=== PATIENT | male | born 1950 | race Caucasian/White ===

== ENCOUNTER → 2021-07-11 15:14 | Outpatient (CLI) | payer OTHER, SELFPAY ==
--- NOTE | 2021-07-11 15:16 | DI.RAD.S_ITS ---
PROCEDURE: XR SHOULDER RT MIN 2V INDICATIONS: bilateral shoulder pain TECHNIQUE: 3 views of the shoulder were acquired. COMPARISON: None. FINDINGS: Bones: No fractures or dislocations. No suspicious bony lesions. Visualized ribs appear intact. Soft tissues: No suspicious soft tissue calcifications. IMPRESSION: Unremarkable right shoulder radiographs Approved by: Hardik Hart M.D. on 07/11/2021 at 16:58
--- NOTE | 2021-07-11 15:16 | DI.RAD.S_ITS ---
PROCEDURE: XR SHOULDER LT MIN 2V INDICATIONS: bilateral shoulder pain TECHNIQUE: 3 views of the shoulder were acquired. COMPARISON: None. FINDINGS: Bones: No fractures or dislocations. No suspicious bony lesions. Visualized ribs appear intact. Moderate to severe acromioclavicular degenerative narrowing. Humeral head is high-riding. Glenohumeral narrowing is present. Soft tissues: No suspicious soft tissue calcifications. IMPRESSION: Acromioclavicular and glenohumeral arthritic change. Dictated by: Hanny Gleason M.D. on 07/11/2021 at 19:29 Approved by: Hanny Gleason M.D. on 07/11/2021 at 19:30
== END ==
PROVIDERS: PCP Family Medicine; Referring Provider Family Medicine; Visit Provider Family Medicine
DX: M25.511 Pain in right shoulder (principal); M25.512 Pain in left shoulder
CPT/HCPCS: 73030

== ENCOUNTER → 2021-07-12 08:56 | Outpatient (CLI) | payer OTHER, SELFPAY ==
[2021-07-12 10:13] LABS: Add Manual Diff / Slide Review NO; Basophils Absolute Auto 0 /uL (0-100); Basophils Percent Auto 0.7 % (0-2); Eosinophils Absolute Auto 200 /uL (0-450); Eosinophils Percent Auto 4.4 % (2-4); Hematocrit 45.6 % (41-53); Hemoglobin 15.6 g/dL (13.5-17.5); Lymphocytes Absolute Auto 1100 /uL (1100-4500); Lymphocytes Percent Auto 23.9 % (25-40); Mean Corpuscular HGB Conc 34.1 % (30-36); Mean Corpuscular Hemoglobin 32.5 PG (26-34); Mean Corpuscular Volume 95.2 fL (80-100); Monocytes Absolute Auto 300 /uL (0-900); Monocytes Percent Auto 7.4 % (3-14); Neutrophils Absolute Auto 3000 /uL (1500-7000); Neutrophils Percent Auto 63.6 % (50-75); Platelet Count 139 X10^3/uL (150-400); Red Blood Cell Count 4.78 X10^6/uL (4.5-5.9); Red Cell Distribution Width 12.5 % (11.6-14.8); White Blood Cell Count 4.6 X10^3/uL (4.5-11.0)
[2021-07-12 10:34] LABS: Alanine Aminotransferase 25 IU/L (<50); Albumin 4.2 g/dL (3.5-5.0); Albumin Globulin Ratio 1.6 (1.0-2.8); Alkaline Phosphatase 64 U/L (38-126); Aspartate Aminotransferase 36 IU/L (17-59); BUN Creatinine Ratio 20.7 (6-22); Bilirubin Total 1.1 mg/dL (0.2-1.3); Blood Urea Nitrogen 25 mg/dL (9-20); Calcium 9.2 mg/dL (8.4-10.2); Carbon Dioxide 29 mmol/L (22-32); Chloride 102 mmol/L (98-107); Cholesterol 165 mg/dL (140-199); Estimated Glomerular Filt Rate 58.9 mL/min (>60); Globulin 2.7 g/dL (1.7-4.1); Glucose 91 mg/dL (80-110); HDL Cholesterol 64 mg/dL (40-60); HEMOLYSIS < 15 (0-50); LDL Cholesterol Calculated 86 mg/dL (<100); Sodium 138 mmol/L (137-145); Total Protein 6.9 g/dL (6.3-8.2); Triglycerides 74 mg/dL (35-150)
[2021-07-12 16:05] LABS: Creatinine Urine Random 110.8 mg/dL
[2021-07-12 16:39] LABS: Microalbumin Urine Random < 0.6 mg/dL (0-1.6)
== END ==
PROVIDERS: PCP Family Medicine; Referring Provider Family Medicine; Visit Provider Family Medicine
DX: R03.0 Elevated blood-pressure reading, without diagnosis of hypertension (principal); R74.8 Abnormal levels of other serum enzymes
CPT/HCPCS: 36415; 80053; 80061; 82043; 82570; 85025

== ENCOUNTER 2021-10-21 14:00 | Observation (INO) | payer OTHER, SELFPAY ==
[2021-10-21] VITALS (15 sets, daily range): BP systolic 139–214; BP diastolic 76–93; PULSE 74–88; RESP 15–21; TEMP 36.6–36.8; O2SAT 92–100; BMI 22.1
--- NOTE | 2021-10-21 14:06 | DI.RAD.S_ITS ---
PROCEDURE: XR CHEST 1V INDICATIONS: Possible stroke TECHNIQUE: One view of the chest was acquired. COMPARISON: None. FINDINGS: Surgical changes and devices: None. Lungs and pleura: Lungs are clear. No pleural effusions or pneumothorax. Mediastinum: Mediastinal contours appear normal. Heart size is normal. Bones and chest wall: No suspicious bony lesions. Overlying soft tissues appear unremarkable. IMPRESSION: No acute process. Dictated by: Radha Mike M.D. on 10/21/2021 at 14:47 Approved by: Radha Mike M.D. on 10/21/2021 at 14:47
--- NOTE | 2021-10-21 14:07 | DI.CT.S_ITS ---
PROCEDURE: CT HEAD/BRAIN WO CON INDICATIONS: slurred speech since 1830 10/20. TECHNIQUE: Noncontrast 4.5 mm thick angled axial sections acquired from the foramen magnum to the vertex, with coronal and sagittal reformats. For radiation dose reduction, the following was used: automated exposure control, adjustment of mA and/or kV according to patient size. COMPARISON: None. FINDINGS: Image quality: Excellent. CSF spaces: Basal cisterns are patent. No extra-axial fluid collections. The ventricles are symmetric in size and shape. Brain: No intracranial bleeds or masses. There is cerebral volume loss for age, with resultant ventricular and sulcal prominence. There are periventricular and deep white matter chronic small vessel ischemic changes. Low-density foci are seen involving the deep white matter of the left frontal lobe. There is intracranial internal carotid artery atherosclerosis. Skull and face: Calvarium and visualized facial bones appear intact, without suspicious lesions. Sinuses: Visualized sinuses and mastoids are clear. IMPRESSION: There low-density foci seen involving the deep white matter of the left frontal lobe, which most likely represent subacute to remote infarctions. No acute intracranial hemorrhage is seen. If there is strong clinical suspicion for an acute stroke, please consider a brain MRI for further evaluation, as it is more sensitive (assuming that there is no contraindication to MRI). Note is made of age-appropriate brain parenchymal volume loss and chronic small vessel ischemic changes. Dictated by: Rubens Roche M.D. on 10/21/2021 at 13:53 Approved by: Rubnes Roche M.D. on 10/21/2021 at 13:54
--- NOTE | 2021-10-21 14:13 | ED.NEUROSD ---
HPI - Neuro Symptoms/Deficit General Chief Complaint: Neuro Symptoms/Deficit Stated Complaint: Slurred Speech, Chills, Rapid Heart Rate Time Seen by Provider: 10/21/21 14:05 History of Present Illness HPI Narrative: The patient is here for concerns of slurred speech. He developed slurred speech last night, apparently worse this morning. He has no confusion, no visual changes, no changes in facial expression. His complains that he always had slurred speech. Apparently worse today. He is ambulatory upon arrival. He has no weakness or numbness in extremities. He denies recent illness. He has no headache, sore throat, dyspnea or fever. He has no GI symptoms. He denies chronic medical problems. He is on no medications. Specifically has no history of stroke, TIA or cardiac disease. He denies surgical history. His described issue with his liver couple years ago, that caused significant issues with his heart. No diagnosis was made, symptoms resolved without obvious sequelae. On Anticoagulants: No Related Data Home Medications Medication Instructions Recorded Confirmed No Known Home Medications 07/18/21 10/21/21 Allergies Allergy/AdvReac Type Severity Reaction Status Date / Time codeine Allergy Verified 10/21/21 14:15 Review of Systems Constitutional Constitutional: Denies chills, Denies fever(s) and Denies headache(s) Comments: No recent illness. Eyes Eyes: Denies change in vision and Denies loss of vision ENT Ears, Nose, Mouth, and Throat: Denies vertigo, Denies dizziness, Denies headache(s), Denies sinus pressure and Denies sore throat Cardiovascular Cardiovascular: Denies chest pain, Denies syncope, Denies rapid heart rate, Denies pedal edema, Denies irregular heart rhythm and Denies dyspnea Respiratory Respiratory: Denies cough and Denies dyspnea Gastrointestinal Gastrointestinal: Denies abdominal pain Genitourinary Genitourinary: Denies dysuria and Denies urinary frequency Musculoskeletal Musculoskeletal: Denies arthralgias and Denies myalgias Integumentary/Breasts Skin/Breast: Denies lesions and Denies rash Neurologic Neurologic: Denies confusion, Denies vertigo, Denies dizziness, Denies syncope, Denies headache(s), Denies localized weakness, Denies loss of vision and Denies memory loss Psychiatric Psychiatric: Denies confusion and Denies memory loss Hematologic/Lymphatic On Anticoagulants: No Patient History Medical History Ruptured tympanic membrane (~1986) Surgical History Anesthesia History of nasal surgery (~1964) Family History Father Sepsis Mother History of heart disease Grandmother Melanoma Grandfather Intestinal disease Grandmother History of heart disease History of heart attack Grandfather History of heart disease Social History household members: spouse Smoking Status: Never smoker alcohol intake: never Smoking Status: Never smoker Exam Initial Vital Signs Initial Vital Signs: Vital Signs Temperature 97.9 F 10/21/21 14:00 Pulse Rate 87 10/21/21 14:00 Respiratory Rate 15 10/21/21 14:00 Blood Pressure 214/93 H 10/21/21 14:00 Pulse Oximetry 99 10/21/21 14:00 Const General: cooperative, healthy appearing, comfortable, well developed and well groomed [facility] Head: normocephalic and atraumatic Face and sinus: normal facial exam Mouth: oral mucosae normal Eyes Conjunctivae: conjunctivae normal Sclera: sclerae normal Pupils: PERRL EOM: EOM intact bilaterally Direct ophthalmoscopy: fundi normal bilaterally Neck Neck: No JVD and other (No bruits) Chest Chest: normal inspection of the chest Resp Auscultation: clear to auscultation bilaterally Cardio Rate: regular rate Rhythm: regular rhythm Heart Sounds: S1 normal, S2 normal and no murmurs Bruits: abdominal aortic bruit GI Palpation: soft, No mass and No tender Auscultation: normal bowel sounds Back/Spine/Pelvis Back: normal to inspection and back tenderness Skin General: no rashes or lesions noted Neuro General: patient alert, patient awake and no focal motor deficits Cranial Nerves: CN's II-XI intact bilaterally Motor: muscle tone normal throughout Extrem General: normal to inspection, full ROM, no pedal edema and no calf tenderness Psych Mental Status: mental status grossly normal Scores NIH Stroke Scale Level of Conciousness: Alert, keenly responsive Ask month/age: Answers both questions correctly. Open/close eyes, close hand: Performs both tasks correctly Best gaze horizontal: Normal Visual yoder: No visual loss Facial palsy: Normal symetrical movement Left arm drift: No drift for full 10 sec Right arm drift: No drift for full 10 sec Left leg drift: No drift for full 5 sec Right leg drift: No drift for full 5 sec Limb ataxia: Absent Sensory on face/arms/legs: Normal, no sensory loss Best language: No aphasia, normal Dysarthria: Normal Extinction or inattention: No abnormality Total NIH Stroke scale score: 0 Course Course Course Narrative: The patient has NIHSS of 0. However CT showed a subacute stroke, confirmed by MRI. He is neurologically intact. He has a normal sinus rhythm without obvious ectopy. His blood pressure is in the 150s at the time of admission. He has been given aspirin. The case was discussed with Dr. Bergman, hospitalist. He is admitted for ongoing care and management for stroke. Orders Ordered: ED Orders 10/21/21 14:06 XR chest 1V Stat 10/21/21 14:07 CT head/brain wo con Stat 10/21/21 14:08 COVID19 -Nasal swab/Pre-Proc Stat 10/21/21 14:13 Complete Blood Count AUTO DIFF Stat Comprehensive Metabolic Panel Stat Partial Thromboplastin Time Stat Prothrombin Time INR Stat Troponin & CK Cardiac Panel Stat 10/21/21 14:14 EKG-12 Lead Stat 10/21/21 15:16 MR stroke Stat 10/21/21 18:10 Urine Drug Screen, Rapid Stat Discontinued Medications Aspirin (Aspirin 81 Mg Chew Tab) 324 mg PO NOW ONE Stop: 10/21/21 17:38 Last Admin: 10/21/21 18:51 Dose: 324 mg Documented by: FROYLAN Vital Signs Vital signs: Vital Signs - 8 hr 10/21/21 14:00 10/21/21 14:05 10/21/21 14:07 Temperature 97.9 F Pulse Rate 87 88 Respiratory Rate 15 Blood Pressure 214/93 H 214/93 H Pulse Oximetry 99 92 99 10/21/21 14:30 10/21/21 14:49 10/21/21 15:00 Temperature Pulse Rate 78 80 79 Respiratory Rate 15 Blood Pressure 150/76 H 154/81 H Pulse Oximetry 100 100 99 10/21/21 16:07 10/21/21 16:08 10/21/21 16:30 Temperature Pulse Rate 88 88 84 Respiratory Rate 17 Blood Pressure 156/81 H Pulse Oximetry 98 99 98 10/21/21 17:00 Temperature Pulse Rate 85 Respiratory Rate Blood Pressure Pulse Oximetry MDM - Neuro Symptoms/Deficit Lab Data Result diagrams: 10/21/21 14:13 10/21/21 14:13 Labs: Lab Results 10/21/21 10/21/21 10/21/21 Range/Units 14:08 14:13 14:13 WBC 5.4 (4.5-11.0) X10^3/uL RBC 4.81 (4.5-5.9) X10^6/uL Hgb 15.9 (13.5-17.5) g/dL Hct 46.0 (41-53) % MCV 95.6 (80-100) fL MCH 33.1 (26-34) PG MCHC 34.6 (30-36) % RDW 13.5 (11.6-14.8) % Plt Count 139 L (150-400) X10^3/uL Neut % (Auto) 76.0 H (50-75) % Lymph % (Auto) 14.0 L (25-40) % [place] % (Auto) 8.8 (3-14) % Eos % (Auto) 0.6 L (2-4) % Baso % (Auto) 0.6 (0-2) % Neut # (Auto) 4100 (4097-2104) /uL Lymph # (Auto) 800 L (8486-8874) /uL [place] # (Auto) 500 (0-900) /uL Eos # (Auto) 0 (0-450) /uL Baso # (Auto) 0 (0-100) /uL PT 11.6 (10.1-12.7) SECONDS INR 1.0 (0.9-1.3) APTT 30 (26.4-36.2) SECONDS Sodium (137-145) mmol/L Potassium (3.4-5.1) mmol/L Chloride (98-107) mmol/L Carbon Dioxide (22-32) mmol/L BUN (9-20) mg/dL Creatinine (0.66-1.25) mg/dL Estimated GFR (>60) mL/min BUN/Creatinine Ratio (6-22) Glucose (80-110) mg/dL Calcium (8.4-10.2) mg/dL Total Bilirubin (0.2-1.3) mg/dL AST (17-59) IU/L ALT (<50) IU/L Alkaline Phosphatase (38-126) U/L Total Creatine Kinase (55-170) U/L CK-MB (CK-2) CK-MB (CK-2) Rel Index Troponin I (0.01-0.034) ng/mL Total Protein (6.3-8.2) g/dL Albumin (3.5-5.0) g/dL Globulin (1.7-4.1) g/dL Albumin/Globulin Ratio (1.0-2.8) SARS-CoV-2 (PCR) Negative (Negative) 10/21/21 Range/Units 14:13 WBC (4.5-11.0) X10^3/uL RBC (4.5-5.9) X10^6/uL Hgb (13.5-17.5) g/dL Hct (41-53) % MCV (80-100) fL MCH (26-34) PG MCHC (30-36) % RDW (11.6-14.8) % Plt Count (150-400) X10^3/uL Neut % (Auto) (50-75) % Lymph % (Auto) (25-40) % [place] % (Auto) (3-14) % Eos % (Auto) (2-4) % Baso % (Auto) (0-2) % Neut # (Auto) (1910-7784) /uL Lymph # (Auto) (5406-4353) /uL [place] # (Auto) (0-900) /uL Eos # (Auto) (0-450) /uL Baso # (Auto) (0-100) /uL PT (10.1-12.7) SECONDS INR (0.9-1.3) APTT (26.4-36.2) SECONDS Sodium 139 (137-145) mmol/L Potassium 4.1 (3.4-5.1) mmol/L Chloride 104 (98-107) mmol/L Carbon Dioxide 29 (22-32) mmol/L BUN 25 H (9-20) mg/dL Creatinine 1.24 (0.66-1.25) mg/dL Estimated GFR 57.3 L (>60) mL/min BUN/Creatinine Ratio 20.2 (6-22) Glucose 120 H (80-110) mg/dL Calcium 9.4 (8.4-10.2) mg/dL Total Bilirubin 1.0 (0.2-1.3) mg/dL AST 38 (17-59) IU/L ALT 23 (<50) IU/L Alkaline Phosphatase 82 (38-126) U/L Total Creatine Kinase 80 (55-170) U/L CK-MB (CK-2) TNP CK-MB (CK-2) Rel Index TNP Troponin I < 0.012 (0.01-0.034) ng/mL Total Protein 8.2 (6.3-8.2) g/dL Albumin 4.8 (3.5-5.0) g/dL Globulin 3.4 (1.7-4.1) g/dL Albumin/Globulin Ratio 1.4 (1.0-2.8) SARS-CoV-2 (PCR) (Negative) Point of Care Testing Glucose POC [address] scan - head: Radiologist's Impression: Low-density foci seen involving the deep white matter of the left foot now low. Findings consistent with a subacute infarct. Brain MRI: Radiologist's Impression: MRI confirms acute CVA as noted on head CT. Chest x-ray: Radiologist's Impression: No acute findings ECG Data Attestation: I personally reviewed and interpreted this ECG as follows: (Normal sinus rhythm rate 82 beats per minute. First-degree AV block. Normal intervals. No ectopy. No acute ST T wave changes.) Critical Care Time Critical Care Time Critical Care Time: Yes Total Critical Care Time: 40 Attestation: Critical care included patient evaluation, review of records, review of x-ray, EKG and lab data. The situation was discussed with the patient. The situation presented to the admitting hospitalist. Discharge Plan Departure Patient Disposition: Admitted as Observation Clinical Impression: Cerebrovascular accident Admit Date/Time: 10/21/21 17:14 Admit Provider: Ugo Bergman
[2021-10-21 14:25] LABS: Add Manual Diff / Slide Review NO; Basophils Absolute Auto 0 /uL (0-100); Basophils Percent Auto 0.6 % (0-2); Eosinophils Absolute Auto 0 /uL (0-450); Eosinophils Percent Auto 0.6 % (2-4); Hemoglobin 15.9 g/dL (13.5-17.5); Lymphocytes Absolute Auto 800 /uL (1100-4500); Mean Corpuscular HGB Conc 34.6 % (30-36); Mean Corpuscular Hemoglobin 33.1 PG (26-34); Mean Corpuscular Volume 95.6 fL (80-100); Monocytes Absolute Auto 500 /uL (0-900); Monocytes Percent Auto 8.8 % (3-14); Neutrophils Absolute Auto 4100 /uL (1500-7000); Platelet Count 139 X10^3/uL (150-400); Red Blood Cell Count 4.81 X10^6/uL (4.5-5.9); Red Cell Distribution Width 13.5 % (11.6-14.8); White Blood Cell Count 5.4 X10^3/uL (4.5-11.0)
[2021-10-21 14:30] LABS: Prothrombin Time 11.6 SECONDS (10.1-12.7)
[2021-10-21 14:33] LABS: PTT Partial Thromboplastin Tim 30 SECONDS (26.4-36.2)
[2021-10-21 14:35] LABS: Alanine Aminotransferase 23 IU/L (<50); Albumin 4.8 g/dL (3.5-5.0); Albumin Globulin Ratio 1.4 (1.0-2.8); Alkaline Phosphatase 82 U/L (38-126); Aspartate Aminotransferase 38 IU/L (17-59); BUN Creatinine Ratio 20.2 (6-22); Blood Urea Nitrogen 25 mg/dL (9-20); Calcium 9.4 mg/dL (8.4-10.2); Carbon Dioxide 29 mmol/L (22-32); Chloride 104 mmol/L (98-107); Creatine Kinase 80 U/L (55-170); Estimated Glomerular Filt Rate 57.3 mL/min (>60); Globulin 3.4 g/dL (1.7-4.1); Glucose 120 mg/dL (80-110); HEMOLYSIS < 15 (0-50); Potassium 4.1 mmol/L (3.4-5.1); Sodium 139 mmol/L (137-145); Total Protein 8.2 g/dL (6.3-8.2)
[2021-10-21 14:40] LABS: COVID19 -Nasal RAPID Negative (Negative)
[2021-10-21 14:46] LABS: Troponin I < 0.012 ng/mL (0.01-0.034)
--- NOTE | 2021-10-21 15:16 | DI.MRI.S_ITS ---
PROCEDURE: MR STROKE Pre- and post-contrast brain MRI, non-contrast brain MR angiogram, pre- and postcontrast neck MR angiogram INDICATIONS: slurred speech TECHNIQUE: Brain: Noncontrast axial T1 spin echo, axial T2 fast spin echo, sagittal and axial FLAIR, coronal T2 fast spin echo, axial gradient echo, axial diffusion and ADC through the brain. After the administration of contrast, axial 3D VIBE of the cranial vasculature and brain. Brain MRA: Non-contrast 3-D time of flight MR angiogram, with multiple qfwpvti-uoryakdom-suxbxgbljw (MIP) reformats performed. Neck MRA: Axial and sagittal TruFISP through the neck. Coronal dynamic MR angiogram during administration of contrast in the arterial and venous phases, with 3-dimenstional rtaqfbf-lwjemkpmy-dinvxxpjoa (MIP) reformats constructed from subtraction images. COMPARISON: [facility], CT, CT HEAD/BRAIN WO CON, 10/21/2021, 14:40. FINDINGS: Image quality: This examination is limited by involuntary motion artifact. BRAIN: CSF spaces: Ventricles are normal in size and shape. Basal cisterns are patent. No extra-axial fluid collections. Brain: Areas of abnormal diffusion-weighted signal can be seen involving the deep white matter of the left frontal lobe, as on series 26 images 69-72. Associated dark signal can be seen on the ADC maps. Developing abnormal FLAIR signal can be seen within these regions. No abnormal hemosiderin deposition can be seen at the sites. No intracranial bleeds or mass effects. Whitman-white matter interface is normal. Brainstem appears normal. Normal intravascular flow voids are present. No abnormal intracranial enhancement. Note is made of age-appropriate brain parenchymal volume loss and chronic small vessel ischemic changes. Relatively prominent perivascular spaces are noted. Skull and face: Calvarial marrow signal is normal. Orbits appear normal. Sinuses: Sinuses and mastoids are clear. BRAIN MR ANGIOGRAM: Anterior circulation: Intracranial internal carotid arteries are normal in size and enhancement. The flow within the paired anterior cerebral arteries is normal and symmetric. The flow within the middle cerebral arteries is normal and symmetric. The anterior communicating artery is seen. No stenoses, occlusions, or aneurysms. Posterior circulation: The visualized portions of the vertebral arteries demonstrate normal caliber, and join to form a normal appearing basilar artery. The flow within the posterior cerebral arteries is normal and symmetric. No stenoses, occlusions, or aneurysms. NECK MR ANGIOGRAM: Carotids: Great vessels demonstrate a conventional anatomy as they arise from the aortic arch. The origins of the common carotid arteries appear patent. The calibers and courses of both common carotid arteries are normal. The bifurcation regions appear normal bilaterally. The internal carotid arteries demonstrate normal course and caliber. Posterior circulation: The origins of the vertebral arteries appear patent. More superior portions of both vertebral arteries demonstrate normal course and caliber, and join to form the basilar artery. The basilar artery is believed to be within normal limits, although it is evaluation is limited by motion fact through its inferior portion. Miscellaneous: Subclavian arteries appear patent. Pre-contrast images through the neck show no soft tissue abnormalities. IMPRESSION: BRAIN MRI: Areas of subacute infarction can be seen within the deep white matter of the left frontal lobe, which correspond to the areas of low density seen on the CT scan performed earlier in the day. No masses or abnormal enhancement can be seen. Note is made of age-appropriate brain parenchymal volume loss and chronic small vessel ischemic changes. BRAIN MR ANGIOGRAM: No significant intracranial arterial abnormality is seen. NECK MR ANGIOGRAM: Within the arteries of the neck, no hemodynamically significant stenosis can be seen. Dictated by: Rubens Roche M.D. on 10/21/2021 at 15:23 Approved by: Rubens Roche M.D. on 10/21/2021 at 15:27
--- NOTE | 2021-10-21 17:58 | PM.HP.1 ---
History of Present Illness History of Present Illness Chief complaint: Slurred Speech, Chills, Rapid Heart Rate Narrative: 71yo male with no reported PMH that presents with slurred speech. The patient reports this started yesterday evening at around 1800. He was organizing family pictures when this occurred. His noticed his speech was slurred. He denies that he noticed it himself. He denies that he had any arm/leg weakness, facial droop, vision changes, tinnitus, LOC, urinary/bowel incontinence. He does endorse having palpitations afterward. Denies CP, SOB, leg swelling, recent travel history. Denies recent sick contacts. He reports his slurred speech has since resolved completely. He denies having an issue understanding speech at any time. He states that he didn't come in until today because he and his didn't realized it was potentially a stroke symptom until this morning. The patient denies taking any medications. He does not taking anything OTC, either. Denies ever smoking tobacco products, or abusing EtOH/illicit drugs. He denies any known drug allergies. He denies having a PSH. The patient lives with his nearby. 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 Patient History Medical History Ruptured tympanic membrane (~1986) Surgical History Anesthesia History of nasal surgery (~1964) Family & Social History Family History Father Sepsis Mother History of heart disease Grandmother Melanoma Grandfather Intestinal disease Grandmother History of heart disease History of heart attack Grandfather History of heart disease Safety & Behavioral: Feels Safe in Current Yes Environment Tobacco & Substance use: Smoking Status Never smoker Substance Use Type does not use Meds Home Medications and Allergies Home Medications Medication Instructions Recorded Confirmed Type No Known Home Medications 07/18/21 10/21/21 History Allergies Allergy/AdvReac Type Severity Reaction Status Date / Time codeine Allergy Verified 10/21/21 14:15 Review of Systems Constitutional Comments: Denies fever/chills, night sweats, weight loss. Eyes Comments: Denies vision changes. Cardiovascular Comments: Denies CP, peripheral edema. Endorses palpitations. Respiratory Comments: Denies cough, SOB, URI symptoms Gastrointestinal Comments: Denies abd pain, n/v/d, flank pain. Integumentary/Breasts Comments: Denies new skin changes. Neurologic Comments: Endorses slurred speech Exam Vital Signs (past 8 hours): - 10/21/21 14:00 10/21/21 14:05 10/21/21 14:07 Temperature 97.9 F Pulse Rate 87 88 Respiratory Rate 15 Blood Pressure 214/93 H 214/93 H Pulse Oximetry 99 92 99 10/21/21 14:30 10/21/21 14:49 10/21/21 15:00 Temperature Pulse Rate 78 80 79 Respiratory Rate 15 Blood Pressure 150/76 H 154/81 H Pulse Oximetry 100 100 99 10/21/21 16:07 10/21/21 16:08 10/21/21 16:30 Temperature Pulse Rate 88 88 84 Respiratory Rate 17 Blood Pressure 156/81 H Pulse Oximetry 98 99 98 10/21/21 17:00 10/21/21 17:30 Temperature Pulse Rate 85 79 Respiratory Rate 21 Blood Pressure Pulse Oximetry 99 Oxygen Delivery Method Room Air Const Other: Patient sitting up in bed comfortably upon my entering the room, in no apparent, acute distress Eyes Other: No scleral icterus noted Neck Other: No carotid bruits appreciated Resp Other: Lungs clear to auscultation bilaterally Cardio Other: Regular rate and rhythm, with normal S1 and S2 heart sounds, without extra heart sounds or murmurs appreciated, no peripheral edema GI Other: Soft, non-distended, non-tender, bowel sounds present Skin Other: No grossly abnormal skin lesions noted Neuro Other: CN II-XII grossly normal, no receptive/expressive aphasia appreciated, no grossly focal neurological deficits appreciated Extrem Other: Palpable and equally steady radial and dorsalis pedis pulses Objective Labs Result Diagrams: 10/21/21 14:13 10/21/21 14:13 Labs: Laboratory Results - last 24 hr 10/21/21 10/21/21 10/21/21 14:08 14:13 14:13 WBC 5.4 RBC 4.81 Hgb 15.9 Hct 46.0 MCV 95.6 MCH 33.1 MCHC 34.6 RDW 13.5 Plt Count 139 L Neut % (Auto) 76.0 H Lymph % (Auto) 14.0 L [place] % (Auto) 8.8 Eos % (Auto) 0.6 L Baso % (Auto) 0.6 Neut # (Auto) 4100 Lymph # (Auto) 800 L [place] # (Auto) 500 Eos # (Auto) 0 Baso # (Auto) 0 PT 11.6 INR 1.0 APTT 30 Sodium Potassium Chloride Carbon Dioxide BUN Creatinine Estimated GFR BUN/Creatinine Ratio Glucose Calcium Total Bilirubin AST ALT Alkaline Phosphatase Total Creatine Kinase CK-MB (CK-2) CK-MB (CK-2) Rel Index Troponin I Total Protein Albumin Globulin Albumin/Globulin Ratio SARS-CoV-2 (PCR) Negative 10/21/21 14:13 WBC RBC Hgb Hct MCV MCH MCHC RDW Plt Count Neut % (Auto) Lymph % (Auto) [place] % (Auto) Eos % (Auto) Baso % (Auto) Neut # (Auto) Lymph # (Auto) [place] # (Auto) Eos # (Auto) Baso # (Auto) PT INR APTT Sodium 139 Potassium 4.1 Chloride 104 Carbon Dioxide 29 BUN 25 H Creatinine 1.24 Estimated GFR 57.3 L BUN/Creatinine Ratio 20.2 Glucose 120 H Calcium 9.4 Total Bilirubin 1.0 AST 38 ALT 23 Alkaline Phosphatase 82 Total Creatine Kinase 80 CK-MB (CK-2) TNP CK-MB (CK-2) Rel Index TNP Troponin I < 0.012 Total Protein 8.2 Albumin 4.8 Globulin 3.4 Albumin/Globulin Ratio 1.4 SARS-CoV-2 (PCR) Assessment & Plan Assessment & Plan narrative: Assessment: 1. Subacute left frontal lobe infarct 2. Hypertension Plan: 1. MR angiogram head/neck unremarkable. Aspirin 324 mg one-time given in ER. Allow permissive hypertension for now in the acute setting. Telemetry on-board. Echocardiogram ordered. A1c, lipid profile, TSH ordered. PT/OT on-board. Not starting statin as of yet, pending lab results. 2. Permissive hypertension for now. Can likely start lisinopril 20 mg daily if still hypertensive tomorrow. VTE prophylaxis: Will hold for now given acute stroke Code: Full code I have utilized all available immediate resources to obtain, update, or review the patient's current medications Time Spent With Patient Critical Care time: I spent a total of [] minutes of critical care time on this patient's care today; this time is exclusive of procedural time. Quality MIPS - Admit I confirm the patient?s Advance Care Plan is present, Code status is documented, Surrogate decision maker is in patient?s record [If Yes, STOP here]: Yes
[2021-10-21 18:25] LABS: UR Morphine/Opiate cutoff 300 Negative (Negative); Ur Creatinine Normal (Normal); Ur Specific Gravity Normal (Normal); Urine Amphetamines Negative (Negative); Urine Barbiturates Negative (Negative); Urine Benzodiazepines Negative (Negative); Urine Cocaine Negative (Negative); Urine MDMA Negative (Negative); Urine Methadone Negative (Negative); Urine Methamphetamines Negative (Negative); Urine Oxycodone Negative (Negative); Urine Phencyclidine Negative (Negative); Urine Tetrahydrocannabinol Negative (Negative); Urine Tricyclic Antidepressant Negative (Negative); Urine pH Normal (Normal)
--- NOTE | 2021-10-21 18:34 | DI.ECHO.S_ITS ---
[facility] +---------+ : : [address] : [place] : : : : [address] : : : : Phone: [phone]+ Echocardiogram Report + + :Name: YOSI TUCKER Study Date: 10/22/2021 Height: 69 in : :[facility] ReadingLocation: Weight: 150 lb : : Gender: Male BSA: 1.8 m2 : :: 1950 Age: 71 yrs BP: 145/85 mmHg: :Reason For Study: Stroke : :Ordering Physician: Pacheco, : :Ugo FLANAGAN Performed By: Levi Salas : :Referring: Ugo Bergman MD : + + Interpretation Summary 1) Normal left ventricular size, thickness, and sysotlic function (EF 65-70%). 2) Interventricular septal bounce present. 3) The right ventricle is mildly dilated. The right ventricular systolic function is normal. 4) No significant valvular abnormalities present. 5) No prior Echo available for comparison. Procedure: A two-dimensional transthoracic echocardiogram with color flow and Doppler was performed. The study quality was technically adequate. There is no prior echocardiogram noted for this patient. The patient was in normal sinus rhythm during the exam. Left Ventricle: The left ventricle is normal in size and wall thickness. There is mild proximal septal thickening noted. Left ventricular systolic function appears normal without focal wall motion abnormalities. The ejection fraction is estimated to be 65-70%. Interventricular septal bounce present. Right Ventricle: The right ventricle is mildly dilated. The right ventricular systolic function is normal. Atria: The left atrial size is normal. The right atrium is mildly dilated. There is no Doppler evidence for an interatrial shunt. Mitral Valve: The mitral valve is normal. There is trace mitral regurgitation. Aortic Valve: The aortic valve is trileaflet. The aortic valve opens well. The aortic valve is slightly calcified. There is no aortic valve stenosis. There is trace aortic regurgitation. Tricuspid Valve: The tricuspid valve is normal. There is trace tricuspid regurgitation. The right ventricular systolic pressure is estimated to be at least 20 mmHg based on an estimated right atrial pressure of 3 mm Hg. Pulmonic Valve: The pulmonic valve is not well seen, but is grossly normal. There is a trace or physiologic amount of pulmonic regurgitation. Great Vessels: The aortic root is normal size. The ascending aorta could not be visualized. The aortic arch is normal in size. The IVC is of normal diameter and collapses greater than 50% with a sniff. This suggests a low right atrial pressure of 3 mm Hg. Pericardium/ Pleura There is no pericardial effusion. There is an anterior echo-free space consistent with a fat pad. There is no pleural effusion. MMode/2D Measurements & Calculations LVIDd: 4.0 cm LVOT diam: 1.9 cm LVIDs: 2.2 cm Ao root diam: 2.8 cm FS: 44.5 % Ao Arch Diam (Prox Trans): 2.7 cm IVSd: 1.00 cm LVPWd: 0.79 cm LV rios. diameter/BSA (cm/m^2): 2.2 LV sys. diameter/BSA (cm/m^2): 1.2 LA A2 area: 19.3 cm2 RA long axis: 5.3 cm LA A4 area: 15.8 cm2 RA area: 19.2 cm2 LA length (vol): 4.9 cm RA vol: 59.4 ml LA vol: 53.1 ml RA : 32.5 ml/m2 LA vol index: 29.0 ml/m2 TAPSE: 2.4 cm Doppler Measurements & Calculations Ao V2 max: 142.6 cm/sec LVOT Max Fabrizio: 123.6 cm/sec Ao V2 mean: 102.8 cm/sec LV V1 max P.1 mmHg Ao max P.1 mmHg LV V1 VTI: 22.8 cm Ao mean P.6 mmHg GABY(I,D): 2.5 cm2 Ao V2 VTI: 26.0 cm GABY(V,D): 2.4 cm2 sev ratio: 0.88 GABY indexed to BSA (cm^2/m^2): 1.3 MV E max fabrizio: 64.8 cm/sec TR max fabrizio: 208.9 cm/sec MV A max fabrizio: 57.8 cm/sec TR max P.4 mmHg MV E/A: 1.1 Med Peak E' Fabrizio: 8.2 cm/sec E/E' med: 7.9 Lat Peak E' Fabrizio: 11.2 cm/sec E/E' lat: 5.8 E/e' average: 6.8 MV dec time: 0.19 sec SV(LVOT): 64.0 ml Reading Physician:11:24 AM
[2021-10-21] MEDS: ASPIRIN 81 MG CHEW TAB 324 MG PO (18:51)
--- NOTE | 2021-10-21 18:52 | PC.NURSE ---
Pt arrived from ED at 1815. He is A&ox4, he denies any CP, SOB, dizziness, numbness, tingling, weakness or vision changes. He is neurologically intact upon assessment and passes swallow eval. MD Bergman at bedside evaluating patient. Plan for patient is ECHO in a.m. tele monitoring, heart healthy diet, permissive htn, A1C, lipids, TSH in a.m. and discharge home anticipated 10/22/21
--- NOTE | 2021-10-22 00:12 | PC.NURSE ---
Addendum entered by Charles Dasilva R.N. 10/22/21 00:56: No change from EKG completed in ED. Patient asymptomatic. 0500 Troponin draw ordered. Original Note: Patient showing bradycardia on Tele, mid 40's, with occasional dropped beats. Provider notified and 12 lead EKG ordered.
[2021-10-22 04:00] VITALS: BP 139/86; PULSE 58; RESP 18; TEMP 36.4; O2SAT 97
[2021-10-22 06:17] LABS: Cholesterol 143 mg/dL (140-199); HDL Cholesterol 51 mg/dL (40-60); LDL Cholesterol Calculated 82 mg/dL (<100); Triglycerides 48 mg/dL (35-150)
[2021-10-22 06:29] LABS: Troponin I < 0.012 ng/mL (0.01-0.034)
[2021-10-22 06:47] LABS: TSH w/ Reflex to FT4 3.77 uIU/mL (0.47-4.68)
[2021-10-22 07:00] VITALS: O2SAT 99
[2021-10-22 09:02] VITALS: BP 122/66; PULSE 64; RESP 14; TEMP 36.1; O2SAT 95
[2021-10-22 09:09] VITALS: O2SAT 99
--- NOTE | 2021-10-22 10:40 | PT.IIE ---
Surgical History (Last Reviewed 10/21/21 @ 18:14 by Daniel Parikh MD) Anesthesia Medical History (Last Reviewed 10/21/21 @ 18:14 by Daniel Parikh MD) Ruptured tympanic membrane (~1986) Physical Therapy Inpatient Evaluation/Re-Eval M1 PT/OT-IP Prior Functional Status Start: 10/22/21 12:13 Freq: NEEDED Status: Active Protocol: Document 10/22/21 12:13 AB (Rec: 10/22/21 12:25 AB [id number]) Medical Review Prior Functional Status Medical History Reviewed Yes Communication able to make needs known Mobility and Gait pt stated that he is independent with all mobilities and ambulation without AD Social History Household Members spouse Living Arrangements House Number of Floors (Floors) Two Floors Number of Stairs To Enter/Railing? pt stays on main level of the house 1 step to enter Home Environment Standard Height Toilet,Walk in Shower,Built-In Shower Seat Home Equipment Hand Held Shower Additional Social History Comment pt has an adjustable bed M2 PT-IP Current Condition Start: 10/22/21 12:13 Freq: NEEDED Status: Active Protocol: Document 10/22/21 12:13 AB (Rec: 10/22/21 12:25 AB [id number]) Physical Therapy Current Condition Current Condition Evaluation Date 10/22/21 Treatment Diagnosis CVA; difficulty in walking Onset Date 10/21/21 M3 PT-IP Subjective Start: 10/22/21 12:13 Freq: NEEDED Status: Active Protocol: Document 10/22/21 12:13 AB (Rec: 10/22/21 12:25 AB [id number]) Subjective Physical Therapy Visit Type Type Initial Evaluation Visit Start Time 10:40 Visit Stop Time 10:56 Total Visit Minutes 16 Number of RN X RAY Visits 0 Physical Therapy Visit Comments Patient Comments agreeable to do PT; stated that his difficulty is more on getting words out when he talks Therapy Pain Assessment Pain Present Pain Present Denied Pain M4 PT-IP Mobility and Gait Start: 10/22/21 12:13 Freq: NEEDED Status: Active Protocol: Document 10/22/21 12:13 AB (Rec: 10/22/21 12:25 AB [id number]) PT-Bed Mobility Assessment Supine to Sit Supine to Sit Independent Sit to Supine Sit to Supine Independent Scooting Scooting to Edge of Bed Independent PT-Transfer Assessment Sit to and From Stand Sit to and from Stand Independent Equipment Transfer Assistive Device None,Gait Belt Orthotic/Prosthetic Devices or Brace: No Transfers Transfer Destination Chair Transfer Technique ambulated Transfer Ability Level of Assist Independent,Use of Upper Extremities Comments Mobility Comments pt agreeable to do PT. completed bed mobility independent, ambulated in room without AD SBA to mod I. ambulated out in the hallway ~ 125 ft SBA. completed up/down platform step SBA. pt ambulated back to his room SBA without AD. standing balance assessment: static standing with NBOS: G, static standing NBOS with eyes closed: G standing with perturbations: steady one leg stance: L: 7 sec R: 6 sec pt sat on chair. positioned. call light and table placed within reach. Gait Assessment Gait Gait Assistance Required: Standby Assistance Distance (Feet) 125 Able to Maintain Weight Bearing Status Yes During Gait Assistive Devices Assistive Device None,Gait Belt Orthotic/Prosthetic Devices or Brace: No Gait Deviations General Gait Pattern Antalgic,Decreased Stride Length,Decreased Feet Clearance,Flexed Trunk Stair Climbing Assessment Evaluation Level of Assist On Stairs Standby Assistance Devices Stair Climbing Assistive Devices None Technique/Endurance Stair Climbing Direction Ascend and Descend Stair Climbing Technique Step to Step Number of Steps Climbed 1 Query Text: Stair Climbing Set # Repetitions (reps) 1 PT-Balance Assessment Sitting Balance and Reactions Static Sitting Balance Ability Normal Dynamic Sitting Balance Ability Normal Standing Balance and Reactions Static Standing Balance Ability Good Dynamic Standing Balance Ability Good Device Used without AD M5 PT-IP Objective Assessments Start: 10/22/21 12:13 Freq: NEEDED Status: Active Protocol: Document 10/22/21 12:13 AB (Rec: 10/22/21 12:25 AB [id number]) Orientation Orientation/Cognition Level of Alertness Alert Orientation Name,Age,Birthday,Month,Date, Year,Day of Week,Place, Situation Language Function Ability No Deficits Noted Safety Awareness Understands Safety Issues Memory Description No Deficits Noted Gross Range of Motion Lower Extremity ROM Assessment Within Functional Limits Strength Lower Extremity Strength Assessment Within Functional Limits Coordination Assessment Gross Coordination Gross Coordination WNL Sensation Assessment Sensation Gross Sensation WNL Muscle Tone Muscle Tone WNL Yes M6 PT-IP Treatment Start: 10/22/21 12:13 Freq: NEEDED Status: Active Protocol: Document 10/22/21 12:13 AB (Rec: 10/22/21 12:25 AB [id number]) Physical Therapy Treatment Education Education Provided Safety M7 PT-IP Assessment and Plan Start: 10/22/21 12:13 Freq: NEEDED Status: Active Protocol: Document 10/22/21 12:13 AB (Rec: 10/22/21 12:25 AB [id number]) PT Summary Assessment and Plan Potential Rehabilitation Potential Good Status of Condition at Evaluation Stable Summary Impairments Balance Assessment Summary PT eval completed. No further PT intervention indicated at this time. SBA provided for safety only. pt has F+ dynamic balance but did not have any LOB during ambulation without AD. pt stated that he feels he is at PLOF when it comes to mobility but has difficutly with word finding. Pt agreed that he does not need PT. Frequency of Treatment Frequency Of Treatment Discharge Recommendations To Nursing Amount of Assist Needed Standby Assistance Discharge Recommendations PT Discharge Recommendations Home Other Discharge Recommendations pt will benefit from outpt speech therapy Transportation Needs at Discharge Private Vehicle
[2021-10-22 13:13] VITALS: BP 121/70; PULSE 66; RESP 14; TEMP 36.1; O2SAT 95
--- NOTE | 2021-10-22 13:56 | PC.NURSE ---
Patient d/c completed. Patient teaching regarding new medications, diet, admit dx, ect. done at bedside. Patient questions discussed and answered. Printed medication teaching from [employer] host via [employer] web. Written Rx from hospitalist given to patient with phone number to reach Occupational Therapy for speech eval/therapy. Escorted down to personal vehicle. Patient asked to walk, patient left in stable condition, VSS, walking/talking.
--- NOTE | 2021-10-22 13:58 | OT.IP.EVAL ---
Past Medical History (Last Reviewed 10/21/21 @ 18:14 by Daniel Parikh MD) History of nasal surgery (~1964) Ruptured tympanic membrane (~1986) Surgical History (Last Reviewed 10/21/21 @ 18:14 by Daniel Parikh MD) Anesthesia History of nasal surgery (~1964) Occupational Therapy Inpatient Evaluation/Re-Eval M1 PT/OT-IP Prior Functional Status Start: 10/22/21 12:13 Freq: NEEDED Status: Active Protocol: Document 10/22/21 13:50 [facility] (Rec: 10/22/21 13:58 [facility] [id number]) Medical Review Prior Functional Status Medical History Reviewed Yes Communication able to make needs known Mobility and Gait pt stated that he is independent with all mobilities and ambulation without AD Activities of Daily Living and IADL's completely independent Social History Household Members spouse Living Arrangements House Number of Floors (Floors) Two Floors Number of Stairs To Enter/Railing? pt stays on main level of the house 1 step to enter Home Environment Standard Height Toilet,Walk in Shower,Built-In Shower Seat Home Equipment Hand Held Shower Additional Social History Comment pt has an adjustable bed M2 OT-IP Current Condition Start: 10/22/21 13:50 Freq: Status: Active Protocol: Document 10/22/21 13:50 [facility] (Rec: 10/22/21 13:58 [facility] [id number]) Occupational Therapy Current Condition Current Condition Evaluation Date 10/22/21 Treatment Diagnosis CVA Diagnosis Onset Date 10/21/21 M3 OT- IP Subjective and Pain Start: 10/22/21 13:50 Freq: Status: Active Protocol: Document 10/22/21 13:50 [facility] (Rec: 10/22/21 13:58 [facility] [id number]) OT- Subjective Occupational Therapy Visit Type Type Initial Evaluation Visit Start Time 13:40 Visit Stop Time 13:51 Total Visit Minutes 11 Occupational Therapy Visit Comments Patient Comments Pt on the way out as being discharge but agreed to work with OT. Pt's present in the room. Patient/Caregiver Goals TO go home. M4 OT- IP ADL's Start: 10/22/21 13:50 Freq: Status: Active Protocol: Document 10/22/21 13:50 [facility] (Rec: 10/22/21 13:58 [facility] [id number]) OT ADL-Dressing General Eval Upper Body Dressing Ability Independent Lower Body Dressing Ability Independent Comments OT Dressing Comments Pt states dressed himself earlier. OT ADL-Toileting General Evaluation Toileting Ability Independent Comments OT Toileting Comments Pt states has been using the toilet on his own. M6 OT- IP Functional Cognition Start: 10/22/21 13:50 Freq: Status: Active Protocol: Document 10/22/21 13:50 [facility] (Rec: 10/22/21 13:58 [facility] [id number]) Cognitive Factors Limiting Selfcare Function Cognitive Ability Level of Alertness Alert Patient Orientation Name,Age,Birthday,Month,Date, Year,Day of Week,Place, Situation Attention Span Ability Capable of Focused Attention, Capable of Sustained Attention Ability to Follow Commands Able to Follow Multi-Step Commands Problem Solving Ability No deficits Noted Executive Function Ability No Deficits Noted Cognitive Comments Cognitive Assessment Comments Pt scored 56 seconds on [place] Making Part B which implies normal for visual attention, task switching , speed of processing, mental flexibility , and executive functioning. Pt mainly just having difficulty to get the words out and has requested from the hospitalist for outpt CELL PHONE REPAIR TECHNICIAN. OT- Vision and Hearing OT- Hearing Assessment OT- Hearing Assessment WFL OT- Vision Assessment Visual Attentiveness WFL Occular Pursuits Impaired Horizontal Vision Assessment Comments Pt having difficulty to move his eyes but able to see peripherally without deficits. M7 OT- IP Mobility and Balance Start: 10/22/21 13:50 Freq: Status: Active Protocol: Document 10/22/21 13:50 [facility] (Rec: 10/22/21 13:58 [facility] [id number]) OT-Transfer Assessment Sit to and From Stand Sit to and from Stand Independent M8 OT- IP Objective Assessments Start: 10/22/21 13:50 Freq: Status: Active Protocol: Document 10/22/21 13:50 [facility] (Rec: 10/22/21 13:58 [facility] [id number]) OT- Coordination Assessment Comments Coordination Comments Slightly off finger to thumb for both right and left index finger M9 OT- IP Assessment and Plan Start: 10/22/21 13:50 Freq: Status: Active Protocol: Document 10/22/21 13:50 [facility] (Rec: 10/22/21 13:58 [facility] [id number]) OT Summary Assessment and Plan Potential Rehabilitation Potential Excellent Analytic Complexity at Evaluation Low Summary OT Impairments Balance,Functional Cognition Progress Towards Goals Progressing Toward Goals Assessment Summary Pt LOW complexity and s/p CVA with main deficits difficulty to get his words out and per pt feels like slight decrease for dynamic balance needs. Pt to go home with his and hospitalist written script for pt for outpt CELL PHONE REPAIR TECHNICIAN. Treatment Plan OT Treatment Plan Discharge Planning Discharge Recommendations OT Discharge Recommendations Home with Assistance Transportation Needs at Discharge Private Vehicle
--- NOTE | 2021-10-22 15:49 | CM.DPNOTE ---
DCP Note Patient seen walking independently w/ PT [facility] in [facility]. Cleared medically and functionally for DC home w/spouse. No BUSINESS EDUCATION PROFESSOR needs identified. Plan: Home w/spouse, no needs, pov JW
--- NOTE | 2021-10-22 17:20 | P.DS_ITS ---
History of Present Illness History of Present Illness Chief complaint: Slurred Speech, Chills, Rapid Heart Rate Narrative: Per Dr. Bergman: 71yo male with no reported PMH that presents with slurred speech. The patient reports this started yesterday evening at around 1800. He was organizing family pictures when this occurred. His noticed his speech was slurred. He denies that he noticed it himself. He denies that he had any arm/leg weakness, facial droop, vision changes, tinnitus, LOC, urinary/bowel incont inence. He does endorse having palpitations afterward. Denies CP, SOB, leg swelling, recent travel history. Denies recent sick contacts. He reports his slurred speech has since resolved completely. He denies having an issue understanding speech at any time. He states that he didn't come in until today because he and his didn't realized it was potentially a stroke symptom until this morning. The patient denies taking any medications. He does not taking anything OTC, either. Denies ever smoking tobacco products, or abusing EtOH/illicit drugs. He denies any known drug allergies. He denies having a PSH. The patient lives with his nearby. 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 Discharge Providers Provider Date of admission: 10/21/21 17:14 Discharge Date: 10/22/21 Primary care physician: Terrence Davis MD Consults: 10/21/21 18:33 Consult to Occupational Therapy Evaluate & Treat Comment: Physician Instructions: Evaluate and treat Consult to Physical Therapy Evaluate & Treat Comment: Physician Instructions: Evaluate and Treat Discharge provider: Ace Spears MD Summary Hospital Course Discharge Diagnosis: 1. Subacute frontal CVA 2. Second degree heart block, Type 1 Hospital Course: Mr. Elliott was admitted with speech difficulties. He was outside the window for TPA. His MRI did show multiple small subactue frontal infarcts. Angiogram did not show any large vessel disease. He was started on aspirin and statin. His blood pressure was initially mildly elevated, but resolved to normal on discharge. He was on telemetry and noted to have second degree heart block, type 1. He was asymptomatic. ECHO showed no acute process. He should follow up with PCP. Consider placing on holter monitor to evaluate if he has possible atrial fibrillation, though no evidence during this hospitalization. Consider referral to cardiology based on asymptomatic second degree type 1 heart block, though can continue to monitor for development of symptoms. He was discharged with speech therapy script. Discharge time 33 minutes Exam Vital Signs (past 8 hours): - 10/22/21 13:13 Temperature 97 F L Pulse Rate 66 Respiratory Rate 14 Blood Pressure 121/70 Pulse Oximetry 95 Oxygen Delivery Method Room Air Oxygen Flow Rate 0 Narrative Exam Narrative: GEN: no acute distress CV: regular rate and rhythm PULM: clear bilaterally NEURO: awake, alert, mild dysarthria, bilateral extremity strength 5/5, no numbness, cn 2-12 otherwise intact Objective Labs Result Diagrams: 10/21/21 14:13 10/21/21 14:13 Labs: Laboratory Results - last 24 hr 10/21/21 10/22/21 10/22/21 18:10 05:50 05:50 Hemoglobin A1c 5.0 Troponin I Triglycerides 48 Cholesterol 143 LDL Cholesterol, Calc 82 HDL Cholesterol 51 TSH U Opiates 300ng/mL cut Negative Ur Oxycodone Screen Negative Urine Methadone Screen Negative Ur Barbiturates Screen Negative U Tricyclic Antidepress Negative Ur Phencyclidine Scrn Negative Ur Amphetamines Screen Negative U Methamphetamines Scrn Negative Ur MDMA Scrn (Ecstasy) Negative U Benzodiazepines Scrn Negative Urine Cocaine Screen Negative U Marijuana (THC) Screen Negative 10/22/21 10/22/21 05:50 05:50 Hemoglobin A1c Troponin I < 0.012 Triglycerides Cholesterol LDL Cholesterol, Calc HDL Cholesterol TSH 3.77 U Opiates 300ng/mL cut Ur Oxycodone Screen Urine Methadone Screen Ur Barbiturates Screen U Tricyclic Antidepress Ur Phencyclidine Scrn Ur Amphetamines Screen U Methamphetamines Scrn Ur MDMA Scrn (Ecstasy) U Benzodiazepines Scrn Urine Cocaine Screen U Marijuana (THC) Screen [facility] Medical History Ruptured tympanic membrane (~1986) Surgical History Anesthesia History of nasal surgery (~1964) Family History Father Sepsis Mother History of heart disease Grandmother Melanoma Grandfather Intestinal disease Grandmother History of heart disease History of heart attack Grandfather History of heart disease Social History household members: spouse Smoking Status: Never smoker alcohol intake: never Discharge Plan Discharge Plan Patient Disposition: Home Provider Discharge Comment: Mr. Elliott was admitted due to a stroke. He was found to have small strokes in his frontal lobe white matter in his brain. He was started on aspirin and a statin to reduce his risk of stroke. He should foll ow up with his PCP within one week. Nursing Discharge Comment: Used [employer] to print out Medication teaching on; Atorvastatin and Aspirin. Discharge orders & Medications Prescriptions: New aspirin 81 mg tablet,chewable 81 mg PO DAILY Qty: 30 0RF atorvastatin 80 mg tablet 80 mg PO BEDTIME Qty: 30 0RF Follow up/Referrals: Terrence Davis MD [Primary Care Provider] - Discharge Health Status Multidrug resistant organism: No MDRO Diet/Activity/Treatments Diet: Regular Visit Report/Discharge Packet Instructions: Strokes: Prevention (Alternative Therapy), Heart-Healthy Diet, DI for Stroke-Ischemic, Heart Healthy Physical Activity Discharge Data Primary Care Provider: Terrence Davis Attending Provider: Ugo Bergman Quality VTE Deep Vein Thrombosis/Pulmonary Embolism Present on Admission: No
== END 2021-10-22 13:55 | disposition home or self-care (01) | DRG 66 ==
LOC: ED 16:12 → AC 18:22
PROVIDERS: Nurse Practitioner Family; Admitting Provider Student in an Organized Health Care Education/Training Program; Emergency Provider Emergency Medicine; PCP Family Medicine; Referring Provider Emergency Medicine; Visit Provider Student in an Organized Health Care Education/Training Program
DX: I63.9 Cerebral infarction, unspecified (principal); I10 Essential (primary) hypertension; R47.81 Slurred speech; I44.1 Atrioventricular block, second degree; R29.700 NIHSS score 0; Z20.822 Contact with and (suspected) exposure to COVID-19
CPT/HCPCS: 36415; 70450; 70548; 70553; 71045; 80053; 80061; 80305; 81003; 82550; 82962; 83036; 84443; 84484; 85025; 85610; 85730; 87635; 93005; 93010; 93306; 94760; 97161; 97165; 99284; 99285; 99291; C9803; G0378; A9579

== ENCOUNTER → 2021-11-23 09:47 | Outpatient (CLI) | payer OTHER, SELFPAY ==
[2021-10-21 18:31] VITALS: BMI 22.1
--- NOTE | 2021-12-15 08:05 | P.HOLT.S_ITS ---
Structured Cabling Technician Report Referral & Results Date Patient Seen: 11/23/21 Requesting provider: Terrence Davis Indication: Palpitations Duration of monitoring (days): 14 Diary information: There were 5 patient triggered events and 3 patient diary entries Patient triggered events were associated with (within 45 seconds) sinus rhythm, PVCs, and Wenckebach block Patient diary events were associated with (within 45 seconds) sinus rhythm and Wenckebach block Data: Minimum heart rate identified was 50 beats per minute at 05:42 on 12/05/2021 Maximum heart rate was 127 beats per minute at 16:19 on 12/02/2021 Less than 1% of identified beats were ventricular or supraventricular ectopic in origin, which would classify them as rare. There was 1 run of nonsustained ventricular tachycardia that was 6 beats in duration at a rate of 121 beats per minute. There were 3 pauses identified the longest lasting 3.2 seconds, with the shortest of these being 3.0 seconds Patient also demonstrated Wenckebach block or second-degree AV block Mobitz type 1 that as above was present within 45 seconds of patient events No atrial fibrillation was identified Impression: 14 day rayon tester demonstrating Wenckebach block as a possible source of symptoms but patient also demonstrating 3 pauses of 3 seconds or longer Clinical correlation suggested
== END ==
PROVIDERS: Family Provider Family Medicine; PCP Family Medicine; Referring Provider Family Medicine; Visit Provider Family Medicine
DX: R00.2 Palpitations (principal); I63.9 Cerebral infarction, unspecified
CPT/HCPCS: 93246; 93248

== ENCOUNTER 2021-12-26 09:30 | Outpatient (RCR) | payer OTHER, SELFPAY ==
[2021-10-21 18:31] VITALS: BMI 22.1
--- NOTE | 2021-12-05 12:17 | ST.OPPOC ---
Physical, Occupational & Speech Therapy At [facility] Visit Care Team Role Provider Type Terrence Davis MD Attending Provider Physician Family Provider Primary Care Provider Referring Provider Address: [address] [place] [address], [id number] Speech Pathology Plan of Care Plan of Care Dates 12/05/21-03/06/22 Patient History Pt seen for evaluation of speech/language following CVA on 10/21/21. According to records, pt was seen in the ED after his noticed his speech was slurred. At the time pt denied that he noticed slurring. He denied that he had any arm/leg weakness, facial droop, vision changes. MRI results indicated areas of subacute infarction seen within the deep white matter of the left frontal lobe Short Term Goals Pt will report increased speech sound accuracy with sentences containing words requiring rapid and alternating movements of the articulators. Electronically Signed by: LORI Alexis 12/05/21 3390 Please Sign and Return: I have reviewed this Plan of Care and certify that the skilled therapy services above are required to meet the patient?s needs. Physician Signature Date Printed Name and Credentials Clinical Instructor Signature Printed Name and Credentials
--- NOTE | 2021-12-05 12:18 | ST.IPIE ---
Visit Care Team Role Provider Type Terrence Davis MD Attending Provider Physician Family Provider Primary Care Provider Referring Provider Specialty: Family Practice Address: [address] [place] [address], [facility] Email: [email or web address] Current Diagnoses Cerebral infarction, unspecified (12/05/21) Aphasia (12/05/21) Past Medical History (Last Updated 10/25/21 @ 16:35 by Terrence Davis MD) Aphasia (Medical) History of nasal surgery (Medical ~1964) Cartilage removed Ruptured tympanic membrane (Medical ~1986) ST IP Initial Evaluation Report HAND EDGER Motor Speech Evaluation Start: 12/05/21 11:16 Freq: Status: Active Protocol: Document 12/05/21 11:17 ANNETTE (Rec: 12/05/21 12:07 LNK [id number]) Motor Speech Evaluation Session Time Visit Start Time 09:30 Visit Stop Time 10:30 Total Visit Minutes 60 Visit Information Visit Number 1 Plan of Care Dates 12/05/21-03/06/22 Setting Setting Outpatient Care Next Note Type Next Note Type Treatment Note Patient History Source: [place] [employer] Patient History Pt seen for evaluation of speech/language following CVA on 10/21/21. According to records, pt was seen in the ED after his noticed his speech was slurred. At the time pt denied that he noticed slurring. He denied that he had any arm/leg weakness, facial droop, vision changes. MRI results indicated areas of subacute infarction seen within the deep white matter of the left frontal lobe Mental Status Mental Status Alert,Responsive,Cooperative Subjective Observations Subjective Pt was seen alone without family. Pt is soft spoken and difficult to hear. He reported hat he has a tendency to mumble a lot. Oral Motor Lips Function WNL Observation at rest WNL Pucker WNL Tongue Function WNL Observations at rest WNL Protrusion WNL Lateralization WNL Jaw Function WNL Observations at rest WNL Opening WNL Closing WNL Lateralization WNL Soft Palate Function WNL Symmetry WNL Elevation WNL Respiration/Phonation Phonation Quality WNL Conversation Quality WNL Diadochokinetic Rates P^ Quality WNL T^ Quality WNL K^ Quality WNL P^T^K^ Quality WFL Speech Intelligibility Standardized Tests Assessment Name(s) Informal observation Sentence Severity Mildly Impaired Conversation Severity Mildly Impaired Awareness/Strategy Use Description Type of awareness/use Uses consistently Findings Details Motor Speech Function Mild Impairment Type of Impairment WFL to mild motor speech errors (inconsistent) Assessment Details Assessment Pt presented with mild-WFL word production errors secondary to motor planning for IGNACIO required for speaking. He was observed to demonstrate mild vowel distortion (i.e., /nov-ah-list / when reading a sentence. The word google was pronounced / goog-uh/ among a variety of word pronunciation changes during conversation. The pt was quick to notice and self- correct the errors. He reported that he needs to conscientiously think about his pronunciation. His normal speaking rate is rapid. Prognosis Rehabilitation Potential Good Recommendations Treatment Recommended Yes: 1-2x Short Term Goals Pt will report increased speech sound accuracy with sentences containing words requiring rapid and alternating movements of the articulators. Patient/Family Education Education Described results of evaluation,Patient Understanding,Patient Demonstration
--- NOTE | 2021-12-26 16:26 | ST.OPTN ---
Visit Care Team Role Provider Type Terrence Davis MD Attending Provider Physician Family Provider Primary Care Provider Referring Provider Address: [address] [place] [address], [id number] AQUACULTURE FARMER Treatment Note AQUACULTURE FARMER Treatment Note Start: 12/05/21 11:16 Freq: Status: Active Protocol: Document 12/26/21 16:11 LNK (Rec: 12/29/21 16:23 LNK [id number]) Speech Pathology Treatment Note Session Time Visit Start Time 09:30 Visit Stop Time 10:15 Total Visit Minutes 45 Visit Information Visit Number 2 Setting Treatment Setting Outpatient Care Visit Type Note Type Treatment Note Next Note Type Next Note Type Discharge Summary General Information Patient History 12/05/21-03/06/22Pt seen for evaluation of speech/languge following CVA on 10/21/21. According to records, pt was seen in the ED after his noticed his speech was slurred . At the time pt denied that he noticed slurring. He denied that he had any arm/leg weakness, facial droop, vision changes. MRI results indicated reas of subacute infarction seen within the deep white matter of the left frontal lobe. at evaluation, Pt presented with mild-WFL word production errors secondary to motor planning for IGNACIO required for speaking. He was observed to demonstrate mild vowel distortion (i.e., /nov-ah-list / when reading a sentence. Subjective Identification Type Name,Date of Observations/Patient Presentation pt arrived on time Chief Complaint(s) Speech Patient Knowledge/Awareness of AQUACULTURE FARMER Role Excellent in Treatment Parent/Caretake Knowledge/Awareness of Excellent AQUACULTURE FARMER Role in Treatment Patient/Caregiver Compliance with Home Excellent Exercise Program Objective Short Term Goals Pt will report increased speech sound accuracy with sentences containing words requiring rapid and alternating movements of the articulators. Treatment Activities Pt reported that he has been practicing tthe tongue twisters daily. He further reported that he has noticed an improvement in his speech intelligibility. He also reported that speaking concientoiusly has started to get easier; he realizes tht he will need to continue to think about his speech for some time befoore it is second nature again. Discussed neuroplasticity and that time and practice are the keys to improvement. Assessment Patient Response to Treatment Excellent Rehab Potential Excellent Impairments Identified Speech Progress Towards Goals Excellent Progress Assessment of Overall Progress Improving Assessment of Improvement Pt has impproved his seaking clarity with tongue twisters in daily practice. He feels that he is able to continue this plan of care on his own. We discussed discharge and that he should contact physician if he noticed any regression in his speech. He agreed. Reviewed with Patient Goals,Progress Being Made Patient/Caregiver Understanding Excellent Plan Amount of Therapy Recommended No Further Therapy Frequency of Treatment No Further Therapy Therapy Recommendations Discharge to Home Exercise Program,Discharge from Speech Therapy
--- NOTE | 2021-12-29 16:23 | ST.OPDS ---
Visit Care Team Role Provider Type Terrence Davis MD Attending Provider Physician Family Provider Primary Care Provider Referring Provider Address: [address] [place] [address], [address] MACHINE SHOP REPAIR TECHNICIAN Treatment Note MACHINE SHOP REPAIR TECHNICIAN Treatment Note Start: 12/05/21 11:16 Freq: Status: Active Protocol: Document 12/29/21 16:11 LNK (Rec: 12/29/21 16:23 LNK [id number]) Speech Pathology Treatment Note Session Time Visit Start Time 09:30 Visit Stop Time 10:15 Total Visit Minutes 45 Visit Information Visit Number 2 Setting Treatment Setting Outpatient Care Visit Type Note Type Treatment Note Next Note Type Next Note Type Discharge Summary General Information Patient History 12/05/21-03/06/22Pt seen for evaluation of speech/languge following CVA on 10/21/21. According to records, pt was seen in the ED after his noticed his speech was slurred . At the time pt denied that he noticed slurring. He denied that he had any arm/leg weakness, facial droop, vision changes. MRI results indicated reas of subacute infarction seen within the deep white matter of the left frontal lobe. at evaluation, Pt presented with mild-WFL word production errors secondary to motor planning for IGNACIO required for speaking. He was observed to demonstrate mild vowel distortion (i.e., /nov-ah-list / when reading a sentence. Subjective Identification Type Name,Date of Observations/Patient Presentation pt arrived on time Chief Complaint(s) Speech Patient Knowledge/Awareness of MACHINE SHOP REPAIR TECHNICIAN Role Excellent in Treatment Parent/Caretake Knowledge/Awareness of Excellent MACHINE SHOP REPAIR TECHNICIAN Role in Treatment Patient/Caregiver Compliance with Home Excellent Exercise Program Objective Short Term Goals Pt will report increased speech sound accuracy with sentences containing words requiring rapid and alternating movements of the articulators. Treatment Activities Pt reported that he has been practicing the tongue twisters daily. He further reported that he has noticed an improvement in his speech intelligibility. He also reported that speaking conscientiously has started to get easier; he realizes that he will need to continue to think about his speech for some time before it is second nature again. Discussed neuroplasticity and that time and practice are the keys to improvement. Assessment Patient Response to Treatment Excellent Rehab Potential Excellent Impairments Identified Speech Progress Towards Goals Excellent Progress Assessment of Overall Progress Improving Assessment of Improvement Pt has improved his speaking clarity with tongue twisters in daily practice. He feels that he is able to continue this plan of care on his own. We discussed discharge and that he should contact physician if he noticed any regression in his speech. He agreed. Reviewed with Patient Goals,Progress Being Made Patient/Caregiver Understanding Excellent Plan Amount of Therapy Recommended No Further Therapy Frequency of Treatment No Further Therapy Therapy Recommendations Discharge to Home Exercise Program,Discharge from Speech Therapy
== END 2022-03-01 13:21 ==
LOC: SP 09:30
PROVIDERS: Family Provider Family Medicine; PCP Family Medicine; Referring Provider Family Medicine; Visit Provider Family Medicine
DX: R47.01 Aphasia (principal); I63.9 Cerebral infarction, unspecified
CPT/HCPCS: 92507; 92522

== ENCOUNTER → 2022-04-21 14:02 | Outpatient (CLI) | payer OTHER, SELFPAY ==
[2021-10-21 18:31] VITALS: BMI 22.1
--- NOTE | 2022-04-21 14:06 | DI.NM.S_ITS ---
PROCEDURE: NM EXERCISE TREADMILL NON NUC COMPARISON: None. INDICATIONS: Palpitations; Other fatigue FINDINGS: Rest ECG sinus rhythm, first-degree AV block. Tom protocol 9:30, maximum heart rate 130 bpm (88% peak predicted), maximum blood pressure 172/84, 10.1 METS, VASILE -43%. Stress ECG sinus tachycardia, first-degree AV block, no ST segment changes, frequent PVCs. The patient did not complain of exercise-induced chest pain. IMPRESSION: No evidence of exercise-induced ischemia however frequent PVCs noted. Heart rate and blood pressure response to exercise. Very good exercise capacity. Dictated by: Jacqui Perales D.O. on 04/24/2022 at 12:44 Approved by: Jacqui Perales D.O. on 04/24/2022 at 12:51
[2022-04-21 15:21] LABS: COVID19 -Nasal RAPID Negative (Negative)
== END ==
PROVIDERS: Family Provider Family Medicine; PCP Family Medicine; Referring Provider Internal Medicine Cardiovascular Disease; Visit Provider Internal Medicine Cardiovascular Disease
DX: R00.2 Palpitations (principal); R53.83 Other fatigue; Z20.822 Contact with and (suspected) exposure to COVID-19
CPT/HCPCS: 87635; 93017

== ENCOUNTER → 2022-12-27 10:19 | Outpatient (CLI) | payer OTHER, SELFPAY ==
[2021-10-21 18:31] VITALS: BMI 22.1
[2022-12-27 10:43] LABS: Add Manual Diff / Slide Review NO; Basophils Absolute Auto 0 /uL (0-100); Basophils Percent Auto 0.8 % (0-2); Eosinophils Absolute Auto 200 /uL (0-450); Eosinophils Percent Auto 3.9 % (2-4); Hematocrit 43.3 % (41-53); Hemoglobin 14.9 g/dL (13.5-17.5); Lymphocytes Absolute Auto 900 /uL (1100-4500); Lymphocytes Percent Auto 20.7 % (25-40); Mean Corpuscular HGB Conc 34.4 % (30-36); Mean Corpuscular Hemoglobin 32.8 PG (26-34); Mean Corpuscular Volume 95.3 fL (80-100); Monocytes Absolute Auto 300 /uL (0-900); Monocytes Percent Auto 7.8 % (3-14); Neutrophils Absolute Auto 3000 /uL (1500-7000); Neutrophils Percent Auto 66.8 % (50-75); Platelet Count 115 X10^3/uL (150-400); Red Blood Cell Count 4.55 X10^6/uL (4.5-5.9); Red Cell Distribution Width 13.2 % (11.6-14.8); White Blood Cell Count 4.5 X10^3/uL (4.5-11.0)
[2022-12-27 11:04] LABS: Alanine Aminotransferase 22 IU/L (<50); Albumin 3.9 g/dL (3.5-5.0); Albumin Globulin Ratio 1.3 (1.0-2.8); Alkaline Phosphatase 63 U/L (38-126); Aspartate Aminotransferase 30 IU/L (17-59); Bilirubin Total 0.9 mg/dL (0.2-1.3); Blood Urea Nitrogen 24 mg/dL (9-20); Calcium 8.3 mg/dL (8.4-10.2); Carbon Dioxide 28 mmol/L (22-32); Chloride 105 mmol/L (98-107); Estimated Glomerular Filt Rate > 60 mL/min (>60); Globulin 3.1 g/dL (1.7-4.1); Glucose 99 mg/dL (80-110); HEMOLYSIS < 15 (0-50); Potassium 4.2 mmol/L (3.4-5.1); Sodium 136 mmol/L (137-145)
[2022-12-27 11:35] LABS: Prostate Specific Antigen Scrn 0.852 ng/mL (0.1-4.0)
[2022-12-28 09:48] LABS: x Labcorp Estim. Avg Glu (eAG) 103 mg/dL (.); x Labcorp Hemoglobin A1c 5.2 % (4.8-5.6)
== END ==
PROVIDERS: Family Provider Family Medicine; PCP Family Medicine; Referring Provider Family Medicine; Visit Provider Family Medicine
DX: D69.6 Thrombocytopenia, unspecified (principal); Z12.5 Encounter for screening for malignant neoplasm of prostate; Z86.73 Personal history of transient ischemic attack (TIA), and cerebral infarction without residual deficits; R73.9 Hyperglycemia, unspecified
CPT/HCPCS: 36415; 80053; 83036; 85025; G0103

== ENCOUNTER → 2022-12-28 09:58 | Outpatient (CLI) | payer OTHER, SELFPAY ==
[2021-10-21 18:31] VITALS: BMI 22.1
[2022-12-29 15:08] LABS: Fecal Immunochemical Test Negative (Negative)
== END ==
PROVIDERS: Family Provider Family Medicine; PCP Family Medicine; Referring Provider Family Medicine; Visit Provider Family Medicine
DX: Z12.11 Encounter for screening for malignant neoplasm of colon (principal)
CPT/HCPCS: 82274

== ENCOUNTER → 2023-03-07 10:34 | Outpatient (CLI) | payer OTHER, SELFPAY ==
[2021-10-21 18:31] VITALS: BMI 22.1
[2023-03-07 11:50] LABS: Cholesterol 107 mg/dL (140-199); HDL Cholesterol 59 mg/dL (40-60); LDL Cholesterol Calculated 36 mg/dL (<100); Triglycerides 58 mg/dL (35-150)
== END ==
PROVIDERS: Family Provider Family Medicine; PCP Family Medicine; Referring Provider Internal Medicine Cardiovascular Disease; Visit Provider Internal Medicine Cardiovascular Disease
DX: Z86.73 Personal history of transient ischemic attack (TIA), and cerebral infarction without residual deficits (principal)
CPT/HCPCS: 36415; 80061

== ENCOUNTER 2024-08-07 07:41 | Day surgery (SDC) | payer OTHER, SELFPAY ==
[2021-10-21 18:31] VITALS: BMI 22.1
[2024-07-08 07:55] VITALS: BMI 21.9
[2024-08-07 08:09] VITALS: BP 158/78; PULSE 62; RESP 16; TEMP 36.2; O2SAT 98
--- NOTE | 2024-08-07 08:34 | P.HP_ITS ---
History of Present Illness History of Present Illness Date Patient Seen: 08/07/24 Time Patient Seen: 08:34 Chief complaint: Colonoscopy Narrative: Gerson is a 74-year-old man here for a colonoscopy. He last hadone about 15 years ago that was normal. No family history of colon cancer specifically. [facility] Medical History (Updated 08/07/24 @ 08:35 by Moshe Davila MD) Anxiety Mobitz (type) I (Wenckebach's) atrioventricular block 1st degree AV block HTN (hypertension) Aphasia Cerebrovascular accident Ruptured tympanic membrane (~1986) Surgical History Anesthesia History of nasal surgery (~1964) Family History Father Sepsis Mother History of heart disease Grandmother Melanoma Grandfather Intestinal disease Grandmother History of heart disease History of heart attack Grandfather History of heart disease Social History household members: spouse Smoking Status: Never smoker alcohol intake: never Meds Home Medications and Allergies Home Medications Medication Instructions Recorded Confirmed Type aspirin 81 mg chewable tablet 81 mg PO DAILY #30 tabs 10/22/21 08/07/24 Rx peg 3350-electrolytes 236 240 ml PO Q10M #4,000 mL 06/27/24 Rx gram-22.74 gram-6.74 gram-5.86 gram solution (Golytely) losartan 25 mg tablet 25 mg PO ONCE PM 07/08/24 08/07/24 History rosuvastatin 20 mg tablet 20 mg PO ONCE PM 07/08/24 07/08/24 History Allergies Allergy/AdvReac Type Severity Reaction Status Date / Time codeine Allergy Verified 08/07/24 07:59 Exam Vital Signs (past 8 hours): - 08/07/24 08:09 Temperature 97.2 F L Pulse Rate 62 Respiratory Rate 16 Blood Pressure 158/78 H Pulse Oximetry 98 Const General: No acute distress Resp Effort & Inspection: normal respiratory effort Assessment & Plan Assessment and plan (1) Colon cancer screening: Status: Acute Plan Colonoscopy Time-Based Coding :: [TOTAL MINUTES] spent with patient and on the chart (including review of chart, obtaining history, exam, reviewing outside data, placing orders, documenting exam and treatment plan, and counseling patient) on [DATE].
--- NOTE | 2024-08-07 08:35 | PM.OP.COLON ---
Operative Date/Time/Diagnoses Date of procedure: 08/07/24 Time of procedure: 09:52 Pre-op diagnosis: Colon cancer screening Post-op diagnosis: same Procedure & Clinicians Study performed: Colonoscopy Same procedure as scheduled: Yes Surgeon: Moshe Davila Procedure Notes Procedure in detail: Surgeon: Moshe Davila MD Anesthesia: Jo Ann Rivas CRNA Procedure: The patient was brought to the endoscopy suite, placed in left lateral decubitus position. The patient was connected to monitoring devices. A time-out was performed. Sedation was administered. Once the patient was adequately sedated, a digital rectal exam was performed and was normal. The scope was then inserted and advanced to the cecum where the appendiceal orifice was identified and photographed. The scope was then slowly withdrawn over greater than 6 minutes. The mucosa was thoroughly inspected. No abnormalities were found. The scope was retroflexed in the rectum. The scope was straightened and removed. The patient was awakened and brought to recovery. Scope withdrawal time: 10 minutes Sedation time: 24 minutes EBL: 0 Findings: Normal colon Post-procedure Disposition: PACU
[2024-08-07 09:52] VITALS: BP 97/57; PULSE 67; RESP 16; TEMP 36.1; O2SAT 97
[2024-08-07 09:57] VITALS: BP 98/57; PULSE 66; RESP 12; O2SAT 95
[2024-08-07 10:02] VITALS: BP 102/57; PULSE 66; RESP 10; O2SAT 98
[2024-08-07 10:07] VITALS: BP 111/73; PULSE 71; RESP 12; O2SAT 98
[2024-08-07 10:26] VITALS: BP 128/80; PULSE 64; RESP 16; TEMP 36.2; O2SAT 97
== END 2024-08-07 10:26 | disposition home or self-care (01) ==
PROVIDERS: Family Provider Family Medicine; PCP Family Medicine; Referring Provider Surgery; Visit Provider Surgery
PROC: 0DJD8ZZ Inspection of Lower Intestinal Tract, Via Natural or Artificial Opening Endoscopic (ICD-10-PCS; CPT 45378; principal; 2024-08-07 08:45)
DX: Z12.11 Encounter for screening for malignant neoplasm of colon (principal)
CPT/HCPCS: G0121; J2704

== ENCOUNTER → 2025-07-29 10:37 | Outpatient (CLI) | payer OTHER, SELFPAY ==
[2021-10-21 18:31] VITALS: BMI 22.1
[2025-07-29 11:18] LABS: Add Manual Diff / Slide Review NO; Hematocrit 43.8 % (41-53); Hemoglobin 14.9 g/dL (13.5-17.5); Lymphocytes Absolute Auto 900 /uL (1100-4500); Mean Corpuscular HGB Conc 34.1 % (30-36); Mean Corpuscular Hemoglobin 32.6 PG (26-34); Mean Corpuscular Volume 95.6 fL (80-100); Platelet Count 136 X10^3/uL (150-400)
[2025-07-29 12:22] LABS: Alanine Aminotransferase 19 IU/L (<50); Albumin 4.3 g/dL (3.5-5.0); Albumin Globulin Ratio 1.5 (1.0-2.8); Alkaline Phosphatase 63 U/L (38-126); Blood Urea Nitrogen 31 mg/dL (9-20); Calcium 9.0 mg/dL (8.4-10.2); Carbon Dioxide 25 mmol/L (22-32); Chloride 107 mmol/L (98-107); Cholesterol 131 mg/dL (140-199); Estimated Glomerular Filt Rate > 60 mL/min (>60); Globulin 2.8 g/dL (1.7-4.1); Glucose 97 mg/dL (70-99); HDL Cholesterol 69 mg/dL (40-60); HEMOLYSIS < 15 (0-50); Potassium 4.0 mmol/L (3.4-5.1); Sodium 140 mmol/L (137-145); Total Protein 7.1 g/dL (6.3-8.2); Triglycerides 62 mg/dL (35-150)
[2025-07-29 12:51] LABS: TSH w/ Reflex to FT4 2.17 uIU/mL (0.47-4.68)
== END ==
PROVIDERS: Family Provider Family Medicine; PCP Family Medicine; Referring Provider Internal Medicine Cardiovascular Disease; Visit Provider Internal Medicine Cardiovascular Disease
DX: Z00.00 Encounter for general adult medical examination without abnormal findings (principal); Z12.11 Encounter for screening for malignant neoplasm of colon; Z12.5 Encounter for screening for malignant neoplasm of prostate; I10 Essential (primary) hypertension; D69.6 Thrombocytopenia, unspecified; R73.9 Hyperglycemia, unspecified; Z86.73 Personal history of transient ischemic attack (TIA), and cerebral infarction without residual deficits
CPT/HCPCS: 36415; 80053; 80061; 82172; 84443; 85025; G0103